=== PATIENT | female | born 1970 | race Caucasian/White ===

== ENCOUNTER 2016-11-22 23:14 | Emergency (ER) | payer OTHER ==
[~2016-11-22] VITALS: Ht 167.6 cm; Wt 68.0 kg
[2016-11-22] MEDS ORDERED: HYDROMORPHONE 1 MG/1 ML DISP.SYRIN ONE (23:55)
[2016-11-22] MEDS ORDERED: ONDANSETRON HCL/PF 4 MG/2 ML VIAL ONE (23:55)
[2016-11-22] MEDS ORDERED: IV NS 0.9% 1,000 ML ONE (23:56)
[2016-11-22] MEDS ORDERED: IV SET PRIMARY 1 EA INFUS.SET MC ONE (23:56)
[2016-11-23] MEDS ORDERED: IV NS 0.9% 1,000 ML BAG IV ONE
[2016-11-23] MEDS ORDERED: HYDROMORPHONE INJ 2 MG/ML DISP.SYRIN IV ONE
[2016-11-23] MEDS ORDERED: ONDANSETRON HCL/PF 4 MG/2 ML VIAL IVP ONE
[2016-11-23 00:04] LABS: BASOPHILS % (AUTO) 0.5 % (0.0-2.0); DIFF TOTAL % 100 %; EOSINOPHILS # (AUTO) 0.1 /CMM (0.0-0.7); EOSINOPHILS % (AUTO) 1.2 % (0.0-6.0); HEMATOCRIT 41 % (33-45); HEMOGLOBIN 13.5 g/dL (11.5-14.8); LYMPHOCYTES # (AUTO) 2.2 /CMM (0.8-4.8); LYMPHOCYTES % (AUTO) 33.4 % (20.0-44.0); MEAN CORPUSCULAR HEMOGLOBIN 31 PG (26.0-33.0); MEAN CORPUSCULAR HGB CONC 33 g/dl (31.0-36.0); MEAN CORPUSCULAR VOLUME 92 fL (82-100); MONOCYTES # (AUTO) 0.6 /CMM (0.1-1.30); MONOCYTES % (AUTO) 8.6 % (2.0-12.0); NEUTROPHILS # (AUTO) 3.8 /CMM (1.8-8.9); NEUTROPHILS % (AUTO) 56.3 % (43.0-81.0); PLATELET COUNT (AUTO) 287 /CMM (150-450); RED BLOOD CELL COUNT(AUTO) 4.44 MIL/uL (4.0-5.2); WHITE BLOOD COUNT (AUTO) 6.7 K/uL (4.3-11.0)
[2016-11-23 00:05] LABS: KETONES,URINE NEGATIVE (NEGATIVE); LEUKOCYTE ESTERASE ,URINE NEGATIVE (NEGATIVE); PH,URINE 5.5 (5.0-8.0)
[2016-11-23 00:13] LABS: CALCIUM, SERUM 8.7 mg/dL (8.5-10.1); POTASSIUM 3.9 mmol/L (3.5-5.1)
[2016-11-23 00:16] LABS: INR 0.94 (0.87-1.13); PROTHROMBIN TIME 10.1 SECS (9.5-12.7)
[2016-11-23 00:20] LABS: ADD UA MICROSCOPIC YES; PREGNANCY TEST URINE QUAL NEGATIVE (NEGATIVE)
[2016-11-23 00:24] LABS: ADD URINE CULTURE YES; RBC,URINE NONE SEEN /HPF (0-2); WBC,URINE 0-2 /HPF (0-3)
[2016-11-23 00:49] VITALS: BP 118/76
== END 2016-11-23 00:51 | disposition home or self-care (01) ==
LOC: ER 23:14
DX: N83.202 Unspecified ovarian cyst, left side (principal); R10.32 Left lower quadrant pain
CPT/HCPCS: 36415; 76856; 80048; 81001; 84703; 85025; 85730; 87086; 96361; 96374; 96375; 99285; A4606; J1170; J2405; J7030; Z7610; 81000-TC

== ENCOUNTER 2018-03-20 01:01 | Emergency (ER) | payer OTHER ==
[~2018-03-20] VITALS: Ht 167.6 cm; Wt 72.6 kg
[2018-03-20] MEDS ORDERED: ONDANSETRON HCL/PF 4 MG/2 ML VIAL ONE (01:48)
[2018-03-20] MEDS ORDERED: MORPHINE SULFATE INJ 4 MG/ML DISP.SYRIN ONE ×2 (01:48→03:48)
--- NOTE | 2018-03-20 01:50 | NUR ---
47 yo male bb self. patient is alert and oriented, c/o abd pain, non radiating with anusea and vomit since yesterday. aptient ambulated to er bed with steady gait, skin warm and dry, resp even and unklabored. awaiting orders from provider
--- NOTE | 2018-03-20 01:57 | NUR ---
20g left ac iv started, blood sample obtained and sent to lab. medicated pt as ordered
[2018-03-20] MEDS ORDERED: ONDANSETRON HCL/PF 4 MG/2 ML VIAL IVP ONE (02:00)
[2018-03-20] MEDS ORDERED: IV NS 0.9% 1,000 ML BAG IV ONE (02:00)
[2018-03-20] MEDS ORDERED: MORPHINE SULFATE INJ 2 MG/ML DISP.SYRIN IV ONE ×2 (02:00→04:00)
[2018-03-20 02:07] LABS: BASOPHILS % (AUTO) 0.2 % (0.0-2.0); EOSINOPHILS % (AUTO) 0.2 % (0.0-6.0); HEMATOCRIT 41 % (33-45); HEMOGLOBIN 13.6 g/dL (11.5-14.8); LYMPHOCYTES # (AUTO) 1.5 /CMM (0.8-4.8); LYMPHOCYTES % (AUTO) 10.2 % (20.0-44.0); MEAN CORPUSCULAR HEMOGLOBIN 32 PG (26.0-33.0); MEAN CORPUSCULAR HGB CONC 34 g/dl (31.0-36.0); MEAN CORPUSCULAR VOLUME 95 fL (82-100); MONOCYTES # (AUTO) 0.9 /CMM (0.1-1.30); MONOCYTES % (AUTO) 5.9 % (2.0-12.0); NEUTROPHILS # (AUTO) 12.2 /CMM (1.8-8.9); NEUTROPHILS % (AUTO) 83.5 % (43.0-81.0); PLATELET COUNT (AUTO) 279 /CMM (150-450); RDW COEFFICIENT OF VARIATION 12.5 (11.5-15.0); RED BLOOD CELL COUNT(AUTO) 4.26 MIL/uL (4.0-5.2); WHITE BLOOD COUNT (AUTO) 14.6 K/uL (4.3-11.0)
[2018-03-20 02:08] LABS: APPEARANCE,URINE SL CLOUDY (CLEAR); BILIRUBIN,URINE NEGATIVE (NEGATIVE); BLOOD, URINE TRACE Ery/uL (NEGATIVE); COLOR,URINE YELLOW (YELLOW); KETONES,URINE NEGATIVE (NEGATIVE); LEUKOCYTE ESTERASE ,URINE NEGATIVE (NEGATIVE); NITRITE, URINE NEGATIVE (NEGATIVE); PROTEIN,URINE NEGATIVE (NEGATIVE); UGLUCOSE NEGATIVE (NEGATIVE); UROBILINOGEN,URINE 0.2 EU/dL (0.2)
[2018-03-20 02:14] LABS: BACTERIA,URINE Moderate /HPF (None Seen); MUCUS,URINE Moderate /LPF (None Seen); RBC,URINE 0-2 /HPF (0-2); SQUAMOUS EPITHELIAL CELL,UR Few /HPF (None Seen)
--- NOTE | 2018-03-20 02:30 | NUR ---
PT APPEARS TO BE RESTING COMFORTABLY WITH NO S/S OF PAIN OR DISTRESS.
[2018-03-20 02:36] LABS: CALCIUM, SERUM 8.6 mg/dL (8.5-10.1); POTASSIUM 3.3 mmol/L (3.5-5.1)
[2018-03-20] MEDS ORDERED: CIPROFLOXACIN HCL 500 MG TABLET ONE (04:12)
[2018-03-20] MEDS ORDERED: METRONIDAZOLE 500 MG TABLET ONE (04:15)
--- NOTE | 2018-03-20 04:20 | NUR ---
IV removed. Catheter intact and site benign. Pressure and 4x4 applied to site. No bleeding noted.Patient discharged to home in stable condition. Written and verbal after care instructions given. Patient verbalizes understanding of instruction AND RX. PT AMBULATED OUT WITH A STEADY GAIT. VSS.
[2018-03-20 04:26] VITALS: BP 115/62
[2018-03-20] MEDS ORDERED: CIPROFLOXACIN HCL 250 MG TABLET PO ONE (04:30)
[2018-03-20] MEDS ORDERED: METRONIDAZOLE 500 MG TABLET PO ONE (04:30)
== END 2018-03-20 04:26 | disposition home or self-care (01) ==
LOC: ER 01:03
DX: K57.92 Diverticulitis of intestine, part unspecified, without perforation or abscess without bleeding (principal)
CPT/HCPCS: 36415; 74176; 76856; 80048; 81001; 84703; 85025; 87086; 96374; 96375; 96376; 99285; A4606; J2270 ×2; J2405; Z7610; 81000-TC